=== PATIENT | male | born 1945 | race Caucasian/White ===

== ENCOUNTER 2017-10-03 19:56 | Emergency (ER) | payer OTHER ==
[~2017-10-03] VITALS: Ht 175.3 cm; Wt 94.1 kg
[2017-10-03 19:59] VITALS: TEMP 36.8; Ht 175.3 cm; Wt 94.1 kg
[2017-10-03] MEDS ORDERED: ALBUTEROL HFA 8 GM INHALER INH STA (20:11)
--- NOTE | 2017-10-03 20:16 | EMERGENCY ROOM VISIT NOTE ---
History Report prepared by Dangelo: Noemi Boston Under the Supervision of: Dr. Joseph Peace M.D. First contact with patient: 20:02 Chief Complaint: HEAD INJURY (MINOR) Stated Complaint: BUMP ON HEAD History of Present Illness The patient is a 72 year old male who presents to the Emergency Room with complaints of a constant head injury beginning 1 hour ago. The patient states that he was walking up the steps tonight when he tripped and fell backwards. He reports that he has not been having any falls and was slightly tired after having a long day today. His family notes that he takes a baby Aspirin every day. The patient complains of wheezing and notes that he had pneumonia 1 month ago. He denies any nausea, vomiting, headache, neck pain, changes in gait, and LOC. Source of History: patient Onset: 1 hour ago Position: head Quality: other (injury) Timing: constant Associated Symptoms: No LOC, No headache, No neck pain, No nausea, No vomiting Note: PT complains of wheezing. Review of Systems See HPI for pertinent positives & negatives. A total of 10 systems reviewed and were otherwise negative. Family History No pertinent family history stated. Social History Smoking Status: Never Smoker Marital Status: Housing Status: lives with family Occupation Status: retired Current/Historical Medications Scheduled Amlodipine Besylate (Norvasc), 1 TAB PO DAILY Aspirin (Aspirin Ec), 81 MG PO DAILY Gabapentin (Neurontin), 1 CAP PO TID Insulin Glargine (Lantus Solostar), 20 UNITS SC AMPM Allergies Coded Allergies: Penicillins (Verified Allergy, Unknown, Ringing in ears, dizzy and felt faint, 10/03/17) Physical Exam Vital Signs Date Time Temp Pulse Resp B/P (MAP) Pulse Ox O2 Delivery O2 Flow Rate FiO2 10/03/17 20:45 74 20 117/63 93 10/03/17 20:43 20 93 10/03/17 19:59 36.8 84 18 144/78 87 Room Air Physical Exam GENERAL: Patient is a healthy-appearing well-nourished male HEAD: Pt has a quarter sized bump on the back of the head. EYES: Ocular movements intact pupils equal and react to light OROPHARYNX mucous membranes are moist no exudates present no erythema or edema present NECK: Supple no nuchal rigidity CHEST: Good equal expansion LUNGS: Clear and equal to auscultation CARDIAC: Normal S1 and S2 ABDOMEN: Soft nontender no guarding BACK: No CVA tenderness EXTREMITIES: No pain upon palpation normal muscle strength in all groups no clubbing cyanosis or edema NEURO: Patient is following commands and answering questions appropriately. Alert and oriented x3 Cranial Nerves 2-12 grossly intact Medical Decision & Procedures Laboratory Results Test 10/03/17 20:37 Bedside Glucose 128 mg/dl (70-99) Medications Administered Medications (Trade) Dose Ordered Sig/Carmelina Route Start Time Stop Time Status Last Admin Dose Admin Albuterol (Ventolin Hfa Inhaler) 2 puffs NOW STAT INH 10/03/17 20:11 10/03/17 20:12 DC 10/03/17 20:34 2 PUFFS ED Course 2001: Past medical records reviewed. The patient was evaluated in room C6. A complete history and physical examination was performed. 2008: I offered CT, chest x-ray, and labs to the patient and his family and they refused. 2010: Albuterol 2 puffs INH. 2018: Upon reexamination the patient is doing well. I discussed results and treatment plan with the patient. He verbalizes agreement and understanding. The patient is ready for discharge. Medical Decision Differential diagnosis: Etiologies such as fracture, dislocation, intra-abdominal, pneumothorax, intrathoracic , intracranial, neurologic, as well as other traumatic pathologies were entertained. This is a 72-year-old male who presents emergency department after a fall at home. The patient is complaining of a contusion to the back of his head. He reports he did not lose consciousness. Based on this finding along with the fact that the patient is not on Coumadin or other anticoagulation medication along with the fact that the patient has a normal GCS of 15 and using shared medical decision making with family we made the decision not to perform a CAT scan of the head however the family and patient will return to the emergency department if he develops severe nausea vomiting headache or loss of coordination. In addition the patient is also wheezing on examination and I offered to do a chest x-ray along with laboratory work and breathing treatments however the patient is adamantly refusing. I will provide him with an inhaler to use at home. Patient and family were in agreement with the treatment plan. Medication Reconcilliation Current Medication List: was personally reviewed by me Blood Pressure Screening Patient's blood pressure: Elevated blood pressure Blood pressure disposition: Elevated BP felt to be situational Impression Primary Impression: Fall Additional Impression: Contusion Scribe Attestation The scribe's documentation has been prepared under my direction and personally reviewed by me in its entirety. I confirm that the note above accurately reflects all work, treatment, procedures, and medical decision making performed by me. Departure Information Dispostion Home / Self-Care Forms HOME CARE DOCUMENTATION FORM, IMPORTANT VISIT INFORMATION Patient Instructions ED Fall Dizziness Weakn Balance, ED Head Injury Closed, My [facility] Additional Instructions Awaken at 2300 Return if loss of coordination or balance, severe headache, projectile vomiting Use inhaler twice every 6 hours You were found to have an elevated blood pressure today (>120 sytolic or >90 diastolic). Per medicare guidelines, you need to follow up with this blood pressure screening with your Primary Care Physician (PCP). For a new PCP call [phone]. You have been examined and treated today on an emergency basis only. This is not a substitute for, or an effort to provide, complete comprehensive medical care. It is impossible to recognize and treat all injuries or illnesses in a single emergency department visit. It is therefore important that you follow up closely with your PCP. Call as soon as possible for an appointment. Thank you for your time and consideration. I look forward to speaking with you again soon. Please don't hesitate to call us if you have any questions. Problem Qualifiers Primary Impression: Fall Encounter type: initial encounter Qualified Codes: W19.XXXA - Unspecified fall, initial encounter Additional Impression: Contusion Encounter type: initial encounter Contusion area: head Contusion of head detail: unspecified part of head Qualified Codes: S00.93XA - Contusion of unspecified part of head, initial encounter
[2017-10-03] MEDS ORDERED: GABA1CAP PO (20:25)
[2017-10-03] MEDS ORDERED: INSDGIPEN SC (20:25)
[2017-10-03] MEDS ORDERED: AMLO5TAB2 PO (20:25)
[2017-10-03] MEDS ORDERED: ASPI81TA28 PO (20:25)
[2017-10-03 20:45] VITALS: BP 117/63; PULSE 74; O2SAT 93
== END 2017-10-03 20:50 | disposition home or self-care (01) ==
LOC: C.EDB 19:57 → C.EDC 20:50
DX: S00.93XA Contusion of unspecified part of head, initial encounter (principal); W01.0XXA Fall on same level from slipping, tripping and stumbling without subsequent striking against object, initial encounter; Z79.82 Long term (current) use of aspirin; Z79.4 Long term (current) use of insulin; Z79.899 Other long term (current) drug therapy; Z88.0 Allergy status to penicillin

== ENCOUNTER → 2017-11-27 | Outpatient (CLI) | payer OTHER ==
[~2017-11-27] MED LIST: AMLO5TAB2 PO; ASPI81TA28 PO; GABA100C13 PO; INSDGIPEN SC
[2017-11-27 08:36] LABS: BASO % 0.6 %; BASO ABS # 0.05 K/uL (0-0.2); EOS % 7.5 %; EOS ABS # 0.63 K/uL (0-0.5); HEMATOCRIT 37.9 % (42-52); HEMOGLOBIN 12.2 g/dL (14.0-18.0); IG# 0.01 K/uL (0.00-0.02); LYMPH % 25.4 %; LYMPH ABS # 2.13 K/uL (1.2-3.4); MEAN CELL VOLUME 84.6 fL (80-100); MEAN CORPUSCULAR HEMOGLOBIN 27.2 pg (25-34); MEAN CORPUSCULAR HGB CONC 32.2 g/dl (32-36); MEAN PLATELET VOLUME 10.4 fL (7.4-10.4); MONO % 10.6 %; MONO ABS # 0.89 K/uL (0.11-0.59); NEUT % 55.8 %; NEUT ABS # 4.67 K/uL (1.4-6.5); PLATELET COUNT 242 K/uL (130-400); RED CELL DISTRIBUTION WIDTH CV 14.5 % (11.5-14.5); RED CELL DISTRIBUTION WIDTH SD 45.1 fL (36.4-46.3); WHITE BLOOD COUNT 8.38 K/uL (4.8-10.8)
[2017-11-27 08:46] LABS: HEMOGLOBIN A1C 7.6 % (4.5-5.6)
[2017-11-27 08:47] LABS: ALBUMIN 2.9 gm/dl (3.4-5.0); ALT/SGPT 19 U/L (12-78); BLOOD UREA NITROGEN 20 mg/dl (7-18); CALCIUM 8.6 mg/dl (8.5-10.1); CARBON DIOXIDE 25 mmol/L (21-32); CHOLESTEROL 110 mg/dl (0-200); CREATININE 1.01 mg/dl (0.60-1.40); GLUCOSE 116 mg/dl (70-99); POTASSIUM 3.9 mmol/L (3.5-5.1); SODIUM 138 mmol/L (136-145)
[2017-11-27 08:57] LABS: ALKALINE PHOSPHATASE 72 U/L (45-117); AST/SGOT 16 U/L (15-37); LDL CHOLESTEROL CALCULATED 42 mg/dl; TOTAL PROTEIN 6.6 gm/dl (6.4-8.2)
== END ==
LOC: C.LABCC 08:23
PROVIDERS: ATTEND Internal Medicine
DX: E11.9 Type 2 diabetes mellitus without complications (principal); I25.10 Atherosclerotic heart disease of native coronary artery without angina pectoris; E78.5 Hyperlipidemia, unspecified

== ENCOUNTER → 2017-11-27 | Outpatient (CLI) | payer OTHER | LOC: C.LABCC 07:57 | PROVIDERS: ATTEND Internal Medicine | DX: E11.9 Type 2 diabetes mellitus without complications (principal) ==

== ENCOUNTER → 2017-12-11 | Outpatient (CLI) | payer OTHER ==
[2017-12-11 09:21] LABS: HEMATOCRIT 38.1 % (42-52); HEMOGLOBIN 12.3 g/dL (14.0-18.0); MEAN CORPUSCULAR HEMOGLOBIN 27.5 pg (25-34); MEAN CORPUSCULAR HGB CONC 32.3 g/dl (32-36); MEAN PLATELET VOLUME 10.7 fL (7.4-10.4); PLATELET COUNT 254 K/uL (130-400); RED CELL DISTRIBUTION WIDTH CV 14.2 % (11.5-14.5); RED CELL DISTRIBUTION WIDTH SD 44.2 fL (36.4-46.3); WHITE BLOOD COUNT 9.01 K/uL (4.8-10.8)
== END ==
LOC: C.LABCC 09:00
PROVIDERS: ATTEND Internal Medicine
DX: D64.9 Anemia, unspecified (principal)

== ENCOUNTER → 2018-05-18 | Outpatient (CLI) | payer OTHER ==
[~2018-05-18] MED LIST changes: +GABA-1693 PO; -GABA100C13 PO
[2018-05-18 09:30] LABS: BASO % 0.7 %; BASO ABS # 0.06 K/uL (0-0.2); EOS % 2.9 %; EOS ABS # 0.25 K/uL (0-0.5); HEMATOCRIT 39.1 % (42-52); HEMOGLOBIN 12.5 g/dL (14.0-18.0); IG# 0.03 K/uL (0.00-0.02); LYMPH ABS # 2.09 K/uL (1.2-3.4); MEAN CELL VOLUME 85.7 fL (80-100); MEAN CORPUSCULAR HEMOGLOBIN 27.4 pg (25-34); MONO % 11.4 %; MONO ABS # 0.99 K/uL (0.11-0.59); NEUT % 60.7 %; PLATELET COUNT 239 K/uL (130-400); RED CELL DISTRIBUTION WIDTH CV 13.4 % (11.5-14.5); WHITE BLOOD COUNT 8.72 K/uL (4.8-10.8)
[2018-05-18 09:50] LABS: ALBUMIN 3.2 gm/dl (3.4-5.0); ALKALINE PHOSPHATASE 76 U/L (45-117); ALT/SGPT 24 U/L (12-78); AST/SGOT 22 U/L (15-37); BLOOD UREA NITROGEN 26 mg/dl (7-18); CALCIUM 8.7 mg/dl (8.5-10.1); CARBON DIOXIDE 25 mmol/L (21-32); CREATININE 1.05 mg/dl (0.60-1.40); GLUCOSE 115 mg/dl (70-99); SODIUM 139 mmol/L (136-145); TOTAL PROTEIN 6.9 gm/dl (6.4-8.2)
== END ==
LOC: C.LABCC 08:16
PROVIDERS: ATTEND Internal Medicine
DX: G62.9 Polyneuropathy, unspecified (principal)